=== PATIENT | male | born 1940 | race African-American/Black ===

== ENCOUNTER 2017-03-28 12:47 | Emergency (ER) | payer BC, OTHER ==
[~2017-03-28] VITALS: Ht 170.2 cm; Wt 73.0 kg
[2017-03-28] MEDS ORDERED: HYDROCODONE/ACETAMINOPHEN 5/325MG TABLET PO ONE (17:45)
[2017-03-28 19:41] VITALS: BP 123/56
== END 2017-03-28 19:44 | disposition home or self-care (01) ==
LOC: ER 15:03
DX: M54.5 Low back pain (principal); M25.551 Pain in right hip; I10 Essential (primary) hypertension; E11.9 Type 2 diabetes mellitus without complications; G89.29 Other chronic pain; V49.9XXA Car occupant (driver) (passenger) injured in unspecified traffic accident, initial encounter; Y93.89 Activity, other specified; Y92.89 Other specified places as the place of occurrence of the external cause; Y99.8 Other external cause status
CPT/HCPCS: 72100; 72170; 99284

== ENCOUNTER 2021-12-24 18:31 | Inpatient (IN) | payer BC, OTHER ==
[~2021-12-24] VITALS: Ht 167.6 cm; Wt 60.3 kg
[~2021-12-24 18:31] MED LIST: GABA-532 MT; LISI40TA13 MT; LOVA10TA54 PO; METF-414 PO; NPH,100V SQ; TERA2CAP4 PO
[2021-12-24 19:19] LABS: BASOPHILS % 0.5 % (0.0-2.0); EOSINOPHILS % 3.7 % (0.0-5.0); HEMATOCRIT. 26.5 % (42.0-52.0); HEMOGLOBIN. 8.7 g/dL (14.0-18.0); LYMPHOCYTES % 13.2 % (20.0-50.0); MEAN CORPUSCULAR HEMOGLOBIN 29.5 pg (28.0-32.0); MEAN CORPUSCULAR VOLUME 90.1 fL (80.0-94.0); MEAN PLATELET VOLUME 8.5 fl (7.4-10.4); MONOCYTES % 8.9 % (2.0-8.0); NEUTROPHILS % 73.7 % (40.0-76.0); PLATELET 183 x1000/uL (130-400); RED BLOOD CELL COUNT 2.94 mill/uL (4.7-6.1); RED CELL DISTRIBUTION WIDTH 14.5 % (11.6-14.6)
[2021-12-24 19:28] LABS: CHLORIDE 111 mEq/L (98-107)
[2021-12-24 22:02] LABS: AMYLASE 499 IU/L (25-115)
[2021-12-24] MEDS ORDERED: ONDANSETRON 4MG ODT PO ONE (23:45)
[2021-12-24] MEDS ORDERED: HYDROCODONE/ACETAMINOPHEN 5/325MG TABLET PO ONE (23:45)
[2021-12-25 02:04] VITALS: BP 155/76
[2021-12-25] MEDS ORDERED: ONDANSETRON HCL 4MG/2ML INJ IV PRN (03:45)
[2021-12-25 04:00] VITALS: BP 155/76
[2021-12-25] MEDS: DEXT 5%/0.45% NACL 1000ML 1,000 ML IV SCH ×2 (04:10→16:00)
[2021-12-25] MEDS: MORPHINE SULFATE 4 MG/ML CPJ (NOT FOR IM USE) IV PRN ×2 (05:11→11:30)
[2021-12-25 08:00] VITALS: BP 160/63
[2021-12-25] MEDS: PANTOPRAZOLE SODIUM 40 MG/VIAL IV SCH (08:16)
[2021-12-25 09:24] LABS: BASOPHILS % 0.7 % (0.0-2.0); EOSINOPHILS % 6.1 % (0.0-5.0); HEMATOCRIT. 25.8 % (42.0-52.0); HEMOGLOBIN. 8.5 g/dL (14.0-18.0); LYMPHOCYTES % 17.8 % (20.0-50.0); MEAN CORPUSCULAR HEMOGLOBIN 29.4 pg (28.0-32.0); MEAN CORPUSCULAR VOLUME 89.1 fL (80.0-94.0); MEAN PLATELET VOLUME 8.3 fl (7.4-10.4); MONOCYTES % 10.1 % (2.0-8.0); NEUTROPHILS % 65.3 % (40.0-76.0); PLATELET 183 x1000/uL (130-400); RED BLOOD CELL COUNT 2.89 mill/uL (4.7-6.1); RED CELL DISTRIBUTION WIDTH 14.5 % (11.6-14.6)
[2021-12-25 09:32] LABS: CHLORIDE 108 mEq/L (98-107)
[2021-12-25 09:38] LABS: HDL CHOLESTEROL 48 mg/dL (40-59); LDL CHOLESTEROL 91 mg/dL (5-100)
[2021-12-25] MEDS ORDERED: HYDRALAZINE 20MG/ML VIAL IV PRN (11:15)
[2021-12-25 11:50] LABS: CLARITY URINE CLEAR (CLEAR); COLOR URINE YELLOW (YELLOW); KETONES URINE NEGATIVE (NEGATIVE); LEUKOCYTE ESTERASE URINE NEGATIVE (NEGATIVE); NITRITE URINE NEGATIVE (NEGATIVE); OCCULT BLOOD URINE NEGATIVE (NEGATIVE); PROTEIN URINE TRACE (NEGATIVE); SPECIFIC GRAVITY URINE 1.014 (1.005-1.030); UROBILINOGEN URINE 0.2 E.U./dL (0.2-1.0)
[2021-12-25 12:00] VITALS: BP 125/57
[2021-12-25] MEDS ORDERED: DEXTROSE 50% WATER 50ML SYRINGE IV PRN (12:00)
[2021-12-25] MEDS: BLOOD SUGAR DIAGNOSTIC STRIP TEST SCH ×3 (12:30→20:36)
[2021-12-25] MEDS: INSULIN LISPRO 100 UNITS/ML SUBCUT SCH ×3 (12:30→21:12)
[2021-12-25 12:41] LABS: VITAMIN B12 SERUM 254 pg/mL (211-911)
[2021-12-25 13:00] LABS: *AMPHETAMINES SCREEN URINE NEGATIVE (NEGATIVE); *BARBITURATES SCREEN URINE NEGATIVE (NEGATIVE); *BENZODIAZEPINES SCREEN URINE NEGATIVE (NEGATIVE); *COCAINE SCREEN URINE PRESUMTIVE POSITIVE (NEGATIVE); CANNABINOID URINE SCREEN NEGATIVE (NEGATIVE); METHADONE URINE SCREEN NEGATIVE (NEGATIVE); OPIATES URINE SCREEN NEGATIVE (NEGATIVE); PHENCYCLIDINE URINE SCREEN NEGATIVE (NEGATIVE)
[2021-12-25 16:00] VITALS: BP 132/76
[2021-12-25] MEDS ORDERED: NALOXONE HCL 0.4MG/ML VIAL IV PRN (16:45)
[2021-12-25] MEDS: CYANOCOBALAMIN 1000MCG/ML VIAL SUBCUT SCH (17:49)
[2021-12-25 20:07] VITALS: BP 102/37
[2021-12-26 00:07] VITALS: BP 119/66
[2021-12-26] MEDS: DEXT 5%/0.45% NACL 1000ML 1,000 ML IV SCH ×3 (03:18→21:00)
[2021-12-26 04:07] VITALS: BP 102/40
[2021-12-26 06:36] LABS: BASOPHILS % 0.5 % (0.0-2.0); HEMATOCRIT. 25.5 % (42.0-52.0); HEMOGLOBIN. 8.6 g/dL (14.0-18.0); LYMPHOCYTES % 16.4 % (20.0-50.0); MEAN CORPUSCULAR HEMOGLOBIN 29.9 pg (28.0-32.0); MEAN CORPUSCULAR VOLUME 88.8 fL (80.0-94.0); MEAN PLATELET VOLUME 9.3 fl (7.4-10.4); MONOCYTES % 9.4 % (2.0-8.0); NEUTROPHILS % 68.7 % (40.0-76.0); PLATELET 173 x1000/uL (130-400); RED BLOOD CELL COUNT 2.87 mill/uL (4.7-6.1); RED CELL DISTRIBUTION WIDTH 13.9 % (11.6-14.6)
[2021-12-26 06:47] LABS: CHLORIDE 106 mEq/L (98-107)
[2021-12-26 06:58] LABS: AMYLASE 94 IU/L (25-115)
[2021-12-26] MEDS: BLOOD SUGAR DIAGNOSTIC STRIP TEST SCH ×4 (07:21→21:01)
[2021-12-26] MEDS: INSULIN LISPRO 100 UNITS/ML SUBCUT SCH ×4 (07:45→21:02)
[2021-12-26 08:00] VITALS: BP 152/72
[2021-12-26] MEDS: CYANOCOBALAMIN 1000MCG/ML VIAL SUBCUT SCH (08:03)
[2021-12-26] MEDS: PANTOPRAZOLE SODIUM 40 MG/VIAL IV SCH (08:03)
[2021-12-26 12:00] VITALS: BP 140/68
[2021-12-26 15:54] VITALS: BP 136/64
[2021-12-26 20:00] VITALS: BP 156/86
[2021-12-26] MEDS: MORPHINE SULFATE 4 MG/ML CPJ (NOT FOR IM USE) IV PRN (21:14)
[2021-12-27] VITALS (7 sets, daily range): BP systolic 112–150; BP diastolic 50–86
[2021-12-27] MEDS: DEXT 5%/0.45% NACL 1000ML 1,000 ML IV SCH (02:01)
[2021-12-27 06:57] LABS: BASOPHILS % 0.6 % (0.0-2.0); EOSINOPHILS % 5.2 % (0.0-5.0); HEMATOCRIT. 24.9 % (42.0-52.0); HEMOGLOBIN. 8.3 g/dL (14.0-18.0); LYMPHOCYTES % 19.9 % (20.0-50.0); MEAN CORPUSCULAR HEMOGLOBIN 29.7 pg (28.0-32.0); MEAN CORPUSCULAR VOLUME 88.7 fL (80.0-94.0); MONOCYTES % 10.5 % (2.0-8.0); NEUTROPHILS % 63.8 % (40.0-76.0); PLATELET 164 x1000/uL (130-400); RED CELL DISTRIBUTION WIDTH 13.8 % (11.6-14.6)
[2021-12-27] MEDS: BLOOD SUGAR DIAGNOSTIC STRIP TEST SCH ×4 (07:30→21:35)
[2021-12-27 08:28] LABS: AMYLASE 61 IU/L (25-115); CHLORIDE 106 mEq/L (98-107)
[2021-12-27] MEDS: CYANOCOBALAMIN 1000MCG/ML VIAL SUBCUT SCH (08:46)
[2021-12-27] MEDS: PANTOPRAZOLE SODIUM 40 MG/VIAL IV SCH (08:46)
[2021-12-27] MEDS: INSULIN LISPRO 100 UNITS/ML SUBCUT SCH ×4 (08:58→21:36)
[2021-12-28] VITALS: BP 153/79
== END 2021-12-28 02:38 | disposition short-term general hospital (02) | DRG 444 ==
LOC: ER 18:31 → 5EST 22:07 → EDBEDREQ 22:21 → EDBEDREQTM 22:21 → ENRESERV 23:17
PROVIDERS: ADMIT Internal Medicine; ATTEND Internal Medicine
DX: K80.50 Calculus of bile duct without cholangitis or cholecystitis without obstruction (principal); K85.90 Acute pancreatitis without necrosis or infection, unspecified; I31.3 Pericardial effusion (noninflammatory); K80.80 Other cholelithiasis without obstruction; R07.89 Other chest pain; E11.40 Type 2 diabetes mellitus with diabetic neuropathy, unspecified; D50.9 Iron deficiency anemia, unspecified; I25.10 Atherosclerotic heart disease of native coronary artery without angina pectoris; I10 Essential (primary) hypertension; K86.89 Other specified diseases of pancreas; K57.90 Diverticulosis of intestine, part unspecified, without perforation or abscess without bleeding; E78.00 Pure hypercholesterolemia, unspecified; D18.00 Hemangioma unspecified site; D64.9 Anemia, unspecified; E78.5 Hyperlipidemia, unspecified; R10.13 Epigastric pain; N40.0 Benign prostatic hyperplasia without lower urinary tract symptoms; F14.10 Cocaine abuse, uncomplicated; Z20.822 Contact with and (suspected) exposure to COVID-19; Z79.899 Other long term (current) drug therapy; Z90.49 Acquired absence of other specified parts of digestive tract; Z82.49 Family history of ischemic heart disease and other diseases of the circulatory system; Z71.51 Drug abuse counseling and surveillance of drug abuser
CPT/HCPCS: 36415; 71045; 71250; 73502; 73552; 74176; 74181; 76705; 80048; 80053; 80061; 80076; 80305; 81003; 82150; 82248; 82607; 82728; 82962; 83036; 83540; 83550; 83615; 83735; 83880; 84443; 84484; 85025; 85044; 86301; 87426; 93005; 93306; 99285; C9113; J0360; J1815; J2270; J3420; Q0162; U0003; U0005